=== PATIENT | male | born 1980 | race Caucasian/White ===

== ENCOUNTER 2025-02-20 14:33 | Outpatient (CLI) | payer OTHER, SELFPAY | END 2025-02-20 14:34 | disposition home or self-care (01) | PROVIDERS: PCP Family Medicine; Visit Provider Family Medicine | DX: Z13.6 Encounter for screening for cardiovascular disorders (principal); Z53.9 Procedure and treatment not carried out, unspecified reason | CPT/HCPCS: 80053; 80061 ==

== ENCOUNTER 2025-03-08 13:31 | Outpatient (CLI) | payer OTHER, SELFPAY ==
--- NOTE | 2025-03-08 13:45 | CRLHL7_ITS ---
For Patients: As a result of the Century Cures Act, medical imaging exams and procedure reports are released immediately into your electronic medical record. You may view this report before your referring provider. If you have questions, please contact your health care provider. INDICATION: Fatty liver. TECHNIQUE: Ultrasound abdomen limited. Sonographic images of the right upper quadrant were obtained using peres-scale and color Doppler images. COMPARISON: Right upper quadrant abdominal ultrasound dated 07/23/2015. FINDINGS: Liver: Increased echogenicity of the liver parenchyma. The liver measures 15.9 cm. Bile ducts: Intrahepatic bile ducts are not dilated. The common bile duct measures 0.4 cm. Gallbladder: No cholelithiasis, significant gallbladder wall thickening, or pericholecystic fluid identified. Negative sonographic Hernandez`s sign. Pancreas: Pancreas was not visualized secondary to acoustic shadowing from overlying/adjacent bowel gas. Right kidney: The right kidney measures 10.5 cm in length. No renal calculi or significant hydronephrosis is identified. IMPRESSION: 1. Increased echogenicity of the liver parenchyma, compatible with diffuse hepatic steatosis. 2. Pancreas was not visualized secondary to acoustic shadowing from overlying/adjacent bowel gas. Dictated by Sabrina Diaz MD @ 03/08/2025 3:46:59 PM (Electronically Signed)
== END 2025-03-08 13:32 | disposition home or self-care (01) ==
LOC: US 13:32
PROVIDERS: PCP Family Medicine; Visit Provider Family Medicine
DX: K76.0 Fatty (change of) liver, not elsewhere classified (principal); Z83.79 Family history of other diseases of the digestive system
CPT/HCPCS: 76705